=== PATIENT | male | born 1950 | race Two or more races ===

== ENCOUNTER 2017-03-11 08:25 | Outpatient (CLI) | payer OTHER ==
[~2017-03-11 08:25] MED LIST: OMEPRAZOLE10 MG; SYNTHROID75 MCG; VYTORIN 10-201 EACH
== END 2017-03-11 08:32 | disposition home or self-care (01) ==
LOC: LAB 08:25
DX: N40.0 Benign prostatic hyperplasia without lower urinary tract symptoms (principal)

== ENCOUNTER 2017-06-22 08:52 | Outpatient (CLI) | payer OTHER | END 2017-06-22 15:49 | disposition home or self-care (01) | LOC: LAB 08:52 | DX: D50.0 Iron deficiency anemia secondary to blood loss (chronic) (principal); E11.65 Type 2 diabetes mellitus with hyperglycemia; Z12.11 Encounter for screening for malignant neoplasm of colon; K62.5 Hemorrhage of anus and rectum; R10.84 Generalized abdominal pain; E78.2 Mixed hyperlipidemia; N40.0 Benign prostatic hyperplasia without lower urinary tract symptoms; E03.0 Congenital hypothyroidism with diffuse goiter; N39.0 Urinary tract infection, site not specified; E55.9 Vitamin D deficiency, unspecified; M81.0 Age-related osteoporosis without current pathological fracture; E11.29 Type 2 diabetes mellitus with other diabetic kidney complication ==

== ENCOUNTER 2017-11-28 07:11 | Outpatient (CLI) | payer OTHER | END 2017-11-28 07:18 | disposition home or self-care (01) | LOC: LAB 07:11 | DX: D50.0 Iron deficiency anemia secondary to blood loss (chronic) (principal); E11.65 Type 2 diabetes mellitus with hyperglycemia; Z12.11 Encounter for screening for malignant neoplasm of colon; K62.5 Hemorrhage of anus and rectum; R10.84 Generalized abdominal pain; E78.2 Mixed hyperlipidemia; N40.0 Benign prostatic hyperplasia without lower urinary tract symptoms; E03.0 Congenital hypothyroidism with diffuse goiter; N39.0 Urinary tract infection, site not specified; E55.9 Vitamin D deficiency, unspecified; M81.0 Age-related osteoporosis without current pathological fracture; E11.29 Type 2 diabetes mellitus with other diabetic kidney complication ==

== ENCOUNTER 2018-01-18 15:59 | Outpatient (CLI) | payer OTHER | END 2018-01-18 16:10 | disposition home or self-care (01) | LOC: LAB 15:59 | DX: N40.0 Benign prostatic hyperplasia without lower urinary tract symptoms (principal) ==

== ENCOUNTER 2018-06-26 07:14 | Outpatient (CLI) | payer OTHER | END 2018-06-26 07:21 | disposition home or self-care (01) | LOC: LAB 07:14 | DX: D50.0 Iron deficiency anemia secondary to blood loss (chronic) (principal); E11.69 Type 2 diabetes mellitus with other specified complication; E78.00 Pure hypercholesterolemia, unspecified; E03.8 Other specified hypothyroidism; N39.0 Urinary tract infection, site not specified; Z12.11 Encounter for screening for malignant neoplasm of colon; K62.5 Hemorrhage of anus and rectum; R10.9 Unspecified abdominal pain; E55.9 Vitamin D deficiency, unspecified; E51.8 Other manifestations of thiamine deficiency; E11.29 Type 2 diabetes mellitus with other diabetic kidney complication; N40.0 Benign prostatic hyperplasia without lower urinary tract symptoms ==

== ENCOUNTER 2018-07-01 09:31 | Outpatient (CLI) | payer OTHER | END 2018-07-01 09:38 | disposition home or self-care (01) | LOC: LAB 09:31 | DX: D50.0 Iron deficiency anemia secondary to blood loss (chronic) (principal); E11.69 Type 2 diabetes mellitus with other specified complication; E78.00 Pure hypercholesterolemia, unspecified; E03.8 Other specified hypothyroidism; N39.0 Urinary tract infection, site not specified; K62.5 Hemorrhage of anus and rectum; R10.9 Unspecified abdominal pain; Z12.11 Encounter for screening for malignant neoplasm of colon; E55.9 Vitamin D deficiency, unspecified; E51.8 Other manifestations of thiamine deficiency; E11.29 Type 2 diabetes mellitus with other diabetic kidney complication; N40.0 Benign prostatic hyperplasia without lower urinary tract symptoms ==

== ENCOUNTER 2018-10-09 07:04 | Outpatient (CLI) | payer OTHER | END 2018-10-09 07:12 | disposition home or self-care (01) | LOC: LAB 07:04 | DX: E78.49 Other hyperlipidemia (principal); E11.69 Type 2 diabetes mellitus with other specified complication ==

== ENCOUNTER → 2018-11-27 08:20 | Outpatient (CLI) | payer OTHER | END | disposition home or self-care (01) | LOC: LAB 08:20 | DX: N40.0 Benign prostatic hyperplasia without lower urinary tract symptoms (principal); D50.0 Iron deficiency anemia secondary to blood loss (chronic); E11.69 Type 2 diabetes mellitus with other specified complication; E78.00 Pure hypercholesterolemia, unspecified; E03.8 Other specified hypothyroidism; N39.0 Urinary tract infection, site not specified; R10.84 Generalized abdominal pain; E55.9 Vitamin D deficiency, unspecified; E51.8 Other manifestations of thiamine deficiency; E11.29 Type 2 diabetes mellitus with other diabetic kidney complication ==

== ENCOUNTER 2018-11-27 09:21 | Outpatient (CLI) | payer OTHER | END 2018-11-27 09:23 | disposition home or self-care (01) | LOC: SONOGRAMA 09:21 → MAMO-SONO 10:15 | DX: N40.0 Benign prostatic hyperplasia without lower urinary tract symptoms (principal) ==

== ENCOUNTER → 2019-04-13 06:53 | Outpatient (CLI) | payer OTHER | END | disposition home or self-care (01) | LOC: LAB 06:53 | DX: D64.89 Other specified anemias (principal); I10 Essential (primary) hypertension; E78.00 Pure hypercholesterolemia, unspecified; N39.0 Urinary tract infection, site not specified; E03.8 Other specified hypothyroidism; E11.69 Type 2 diabetes mellitus with other specified complication; E11.29 Type 2 diabetes mellitus with other diabetic kidney complication; Z12.31 Encounter for screening mammogram for malignant neoplasm of breast; R19.5 Other fecal abnormalities; E55.9 Vitamin D deficiency, unspecified; N40.0 Benign prostatic hyperplasia without lower urinary tract symptoms ==

== ENCOUNTER → 2019-04-14 13:52 | Outpatient (CLI) | payer OTHER | END | disposition home or self-care (01) | LOC: LAB 13:52 | DX: D52.8 Other folate deficiency anemias (principal) ==

== ENCOUNTER 2019-07-16 07:31 | Outpatient (CLI) | payer OTHER | END 2019-07-16 07:35 | disposition home or self-care (01) | LOC: LAB 07:31 | DX: D64.89 Other specified anemias (principal); I10 Essential (primary) hypertension; E11.9 Type 2 diabetes mellitus without complications; E78.00 Pure hypercholesterolemia, unspecified; N39.0 Urinary tract infection, site not specified; E03.8 Other specified hypothyroidism ==

== ENCOUNTER 2019-09-27 07:32 | Outpatient (CLI) | payer OTHER | END 2019-09-27 07:39 | disposition home or self-care (01) | LOC: LAB 07:32 | PROVIDERS: ATTEND Internal Medicine | DX: E29.1 Testicular hypofunction (principal); E03.8 Other specified hypothyroidism; E11.65 Type 2 diabetes mellitus with hyperglycemia; N39.0 Urinary tract infection, site not specified; D50.0 Iron deficiency anemia secondary to blood loss (chronic) ==

== ENCOUNTER → 2019-12-02 06:12 | Outpatient (CLI) | payer OTHER | END | disposition home or self-care (01) | LOC: LAB 06:12 | PROVIDERS: ATTEND Urology | DX: N32.81 Overactive bladder (principal) ==

== ENCOUNTER → 2019-12-03 07:24 | Outpatient (CLI) | payer OTHER | END | disposition home or self-care (01) | LOC: LAB 07:24 | PROVIDERS: ATTEND Urology | DX: N40.0 Benign prostatic hyperplasia without lower urinary tract symptoms (principal); D50.0 Iron deficiency anemia secondary to blood loss (chronic); E11.69 Type 2 diabetes mellitus with other specified complication; E03.8 Other specified hypothyroidism; N39.0 Urinary tract infection, site not specified; C38.1 Malignant neoplasm of anterior mediastinum; E29.1 Testicular hypofunction ==

== ENCOUNTER 2020-03-22 06:27 | Outpatient (CLI) | payer OTHER | END 2020-03-22 06:35 | disposition home or self-care (01) | LOC: LAB 06:27 | PROVIDERS: ATTEND Internal Medicine | DX: N40.0 Benign prostatic hyperplasia without lower urinary tract symptoms (principal); D64.89 Other specified anemias; I10 Essential (primary) hypertension; E11.9 Type 2 diabetes mellitus without complications; E78.00 Pure hypercholesterolemia, unspecified; E55.9 Vitamin D deficiency, unspecified; N39.0 Urinary tract infection, site not specified; E03.8 Other specified hypothyroidism; R80.8 Other proteinuria; R19.5 Other fecal abnormalities ==

== ENCOUNTER → 2020-07-21 07:03 | Outpatient (CLI) | payer OTHER | END | disposition home or self-care (01) | LOC: LAB 07:03 | PROVIDERS: ATTEND Internal Medicine | DX: E11.9 Type 2 diabetes mellitus without complications (principal); D64.89 Other specified anemias; N39.0 Urinary tract infection, site not specified; E03.8 Other specified hypothyroidism; E78.00 Pure hypercholesterolemia, unspecified; N40.0 Benign prostatic hyperplasia without lower urinary tract symptoms ==

== ENCOUNTER 2020-10-31 06:53 | Outpatient (CLI) | payer OTHER | END 2020-10-31 06:57 | disposition home or self-care (01) | LOC: LAB 06:53 | PROVIDERS: ATTEND Internal Medicine | DX: E03.8 Other specified hypothyroidism (principal); E11.65 Type 2 diabetes mellitus with hyperglycemia; D50.0 Iron deficiency anemia secondary to blood loss (chronic); N39.0 Urinary tract infection, site not specified; E78.00 Pure hypercholesterolemia, unspecified ==

== ENCOUNTER 2021-02-02 07:08 | Outpatient (CLI) | payer OTHER | END 2021-02-02 07:19 | disposition home or self-care (01) | LOC: LAB 07:08 | DX: N40.0 Benign prostatic hyperplasia without lower urinary tract symptoms (principal) ==

== ENCOUNTER 2021-04-03 06:11 | Outpatient (CLI) | payer OTHER | END 2021-04-03 06:12 | disposition home or self-care (01) | LOC: LAB 06:11 | PROVIDERS: ATTEND Internal Medicine | DX: N32.81 Overactive bladder (principal); E29.1 Testicular hypofunction; N40.1 Benign prostatic hyperplasia with lower urinary tract symptoms; E11.69 Type 2 diabetes mellitus with other specified complication; E03.8 Other specified hypothyroidism; D50.0 Iron deficiency anemia secondary to blood loss (chronic); N39.0 Urinary tract infection, site not specified; N40.0 Benign prostatic hyperplasia without lower urinary tract symptoms ==

== ENCOUNTER 2021-07-06 07:45 | Outpatient (CLI) | payer OTHER | END 2021-07-06 07:51 | disposition home or self-care (01) | LOC: LAB 07:45 | PROVIDERS: ATTEND Internal Medicine | DX: D64.9 Anemia, unspecified (principal); E11.9 Type 2 diabetes mellitus without complications; E78.00 Pure hypercholesterolemia, unspecified; N39.0 Urinary tract infection, site not specified; E03.8 Other specified hypothyroidism; Z12.11 Encounter for screening for malignant neoplasm of colon; R19.5 Other fecal abnormalities; E55.9 Vitamin D deficiency, unspecified ==

== ENCOUNTER 2021-07-26 07:46 | Outpatient (CLI) | payer OTHER | END 2021-07-26 08:49 | disposition home or self-care (01) | LOC: MRI 07:46 | PROVIDERS: ATTEND Neuromusculoskeletal Medicine & OMM | DX: R41.3 Other amnesia (principal); D49.6 Neoplasm of unspecified behavior of brain; G40.909 Epilepsy, unspecified, not intractable, without status epilepticus | CPT/HCPCS: 70553; Q9965 ==

== ENCOUNTER 2021-07-26 07:49 | Outpatient (CLI) | payer OTHER | END 2021-07-26 07:53 | disposition home or self-care (01) | LOC: LAB 07:49 | PROVIDERS: ATTEND Urology | DX: E29.1 Testicular hypofunction (principal); A64 Unspecified sexually transmitted disease ==

== ENCOUNTER 2021-10-08 06:10 | Outpatient (CLI) | payer OTHER | END 2021-10-08 06:11 | disposition home or self-care (01) | LOC: LAB 06:10 | PROVIDERS: ATTEND Internal Medicine | DX: D64.9 Anemia, unspecified (principal); E11.9 Type 2 diabetes mellitus without complications; E78.00 Pure hypercholesterolemia, unspecified; N39.0 Urinary tract infection, site not specified; E03.8 Other specified hypothyroidism ==

== ENCOUNTER 2021-11-18 07:03 | Outpatient (CLI) | payer OTHER | END 2021-11-18 07:05 | disposition home or self-care (01) | LOC: LAB 07:03 | PROVIDERS: ATTEND Neuromusculoskeletal Medicine & OMM | DX: R41.89 Other symptoms and signs involving cognitive functions and awareness (principal); R41.3 Other amnesia; G30.1 Alzheimer's disease with late onset; E03.9 Hypothyroidism, unspecified; E78.00 Pure hypercholesterolemia, unspecified; E78.1 Pure hyperglyceridemia ==

== ENCOUNTER 2022-01-25 07:07 | Outpatient (CLI) | payer OTHER | END 2022-01-25 07:08 | disposition home or self-care (01) | LOC: LAB 07:07 | PROVIDERS: ATTEND Urology | DX: N39.0 Urinary tract infection, site not specified (principal); E11.9 Type 2 diabetes mellitus without complications; E78.00 Pure hypercholesterolemia, unspecified; E03.8 Other specified hypothyroidism; D64.9 Anemia, unspecified ==

== ENCOUNTER 2022-03-29 07:09 | Outpatient (CLI) | payer OTHER | END 2022-03-29 07:10 | disposition home or self-care (01) | LOC: LAB 07:09 | PROVIDERS: ATTEND Specialist | DX: N39.0 Urinary tract infection, site not specified (principal); Z12.5 Encounter for screening for malignant neoplasm of prostate; I11.9 Hypertensive heart disease without heart failure ==

== ENCOUNTER 2022-08-28 06:32 | Outpatient (CLI) | payer OTHER | END 2022-08-28 06:33 | disposition home or self-care (01) | LOC: LAB 06:32 | PROVIDERS: ATTEND Internal Medicine | DX: E29.1 Testicular hypofunction (principal); N40.0 Benign prostatic hyperplasia without lower urinary tract symptoms; N39.0 Urinary tract infection, site not specified; D64.9 Anemia, unspecified; E11.9 Type 2 diabetes mellitus without complications; E03.8 Other specified hypothyroidism; R80.8 Other proteinuria; R19.5 Other fecal abnormalities; Z12.11 Encounter for screening for malignant neoplasm of colon; E55.9 Vitamin D deficiency, unspecified ==

== ENCOUNTER 2022-08-28 07:27 | Outpatient (CLI) | payer OTHER | END 2022-08-28 07:39 | disposition home or self-care (01) | LOC: SONOGRAMA 07:27 | PROVIDERS: ATTEND Internal Medicine | DX: E04.1 Nontoxic single thyroid nodule (principal); E03.8 Other specified hypothyroidism ==

== ENCOUNTER 2023-03-14 08:27 | Outpatient (CLI) | payer OTHER ==
[2023-03-14 10:18] LABS: URINE APPEARANCE Clear; URINE BILIRRUBIN Negative (NEGATIVE); URINE BLOOD Negative; URINE COLOR Yellow; URINE GLUCOSE Negative (NEGATIVE); URINE LEUKOCYTE Trace; URINE NITRATE Negative; URINE PROTEIN Negative (NEGATIVE); URINE UROBILINOGEN 0.2 E.U./dl
[2023-03-14 10:22] LABS: URINE BACTERIA 6.2 uL (0.0-1933); URINE WBC 4.4 uL (0.0-23.2)
[2023-03-14 10:26] LABS: URINE RBC 0.1 uL (0.0-20.8)
[2023-03-14 10:52] LABS: HEMATOCRIT 42.1 % (39.0-48.0); HEMOGLOBIN 14.4 g/dL (13-16.00); MEAN CELL VOLUME 89.7 fL (80.0-100.00); MEAN CORPUSCULAR HEMOGLOBIN 30.8 pg (27.00-32.0); MEAN CORPUSCULAR HGB CONC 34.3 g/dl (32.0-36.0); PLATELET COUNT 242 K/uL (150-450); RED BLOOD COUNT 4.69 M/uL (4.00-6.00); RED CELL DISTRIBUTION WIDTH 14.8 % (11.5-14.5)
[2023-03-14 11:03] LABS: ALBUMIN 3.5 gm/dL (3.4-5.0); ALKALINE PHOSPHATASE 57 U/L (50-136); ALT/SGPT 29 U/L (12-78); ANION GAP 7 (10.0-20.0); AST/SGOT 18 U/L (15-37); BILIRUBIN TOTAL 0.49 mg/dL (0.3-1.2); BLOOD UREA NITROGEN 15 mg/dL (7-18); BUN CREA RATIO 23 (7.0-25.0); C-REACTIVE PROTEIN < 0.29 MG/DL (0.00-0.29); CALCIUM 8.8 mg/dL (8.5-10.1); CARBON DIOXIDE 29 mEq/L (21-32); CHLORIDE 107 mmol/L (98-107); CHOL HDL RATIO 3.1 (0-5.0); CHOLESTEROL 171 mg/dL (0-200); CREATININE SERUM 0.66 mg/dL (0.70-1.30); GFR 118.64; GLOBULINA 3.7 G/DL (2.4-3.5); GLUCOSE FASTING 109 mg/dL (65-100); HDL 56 mg/dl (40-60); LDL 101 mg/dl (0-130); OSMOLALITY SERUM 279 MOSM/KG (275-295); PHOSPHOKINASE CREATININE 106 U/L (39-308); POTASSIUM 4.25 mEq/L (3.5-5.1); SODIUM 139 mmol/L (136-145); T4 FREE 0.94 NG/ML (0.76-1.46); TOTAL PROTEIN 7.2 gm/dL (6.4-8.2); TRIGLYCERIDES 72 mg/dL (0-150); TSH 0.828 uIU/mL (0.358-3.74); VLDL 14 (0-39)
[2023-03-14 15:19] LABS: ERYTHROCYTE SEDIMENTATION RATE 12 mm/hr
[2023-03-16 10:45] LABS: VITAMIN D3 25 HYDROXY 43.81 ng/ml (30-120)
== END 2023-03-14 08:40 | disposition home or self-care (01) ==
LOC: LAB 08:27
PROVIDERS: ATTEND Internal Medicine
DX: D64.9 Anemia, unspecified (principal); E11.9 Type 2 diabetes mellitus without complications; E78.00 Pure hypercholesterolemia, unspecified; N39.0 Urinary tract infection, site not specified; E03.8 Other specified hypothyroidism; N18.31 Chronic kidney disease, stage 3a; Z12.11 Encounter for screening for malignant neoplasm of colon; N40.0 Benign prostatic hyperplasia without lower urinary tract symptoms; E55.9 Vitamin D deficiency, unspecified; N32.81 Overactive bladder

== ENCOUNTER 2023-04-01 10:44 | Outpatient (CLI) | payer OTHER | END 2023-04-01 10:57 | disposition home or self-care (01) | LOC: MRI 10:44 | PROVIDERS: ATTEND Neuromusculoskeletal Medicine & OMM | DX: R41.3 Other amnesia (principal) | CPT/HCPCS: 70553; Q9965 ==

== ENCOUNTER 2023-08-29 07:18 | Outpatient (CLI) | payer OTHER ==
[2023-08-29 08:17] LABS: URINE APPEARANCE Clear; URINE BILIRRUBIN Negative (NEGATIVE); URINE BLOOD Negative; URINE COLOR Yellow; URINE GLUCOSE Negative (NEGATIVE); URINE LEUKOCYTE Small; URINE NITRATE Negative; URINE PROTEIN Negative (NEGATIVE); URINE UROBILINOGEN 0.2 E.U./dl
[2023-08-29 08:18] LABS: URINE BACTERIA 20.1 uL (0.0-1933)
[2023-08-29 08:52] LABS: URINE EPITHELIAL CELLS 0.6 uL (0.0-38.8); URINE RBC 0.6 uL (0.0-20.8)
[2023-08-29 08:59] LABS: ALBUMIN 3.5 gm/dL (3.4-5.0); BILIRUBIN TOTAL 0.27 mg/dL (0.3-1.2); CALCIUM 8.4 mg/dL (8.5-10.1); CHOL HDL RATIO 3.2 (0-5.0); CREATININE SERUM 0.73 mg/dL (0.70-1.30); GFR 105.61; GLOBULINA 3.5 G/DL (2.4-3.5); POTASSIUM 4.92 mEq/L (3.5-5.1); PROSTATIC SPECIFIC ANTIGEN 2.76 NG/ML (0.010-4.00); TSH 1.11 uIU/mL (0.358-3.74)
[2023-08-29 09:31] LABS: HEMATOCRIT 41.4 % (39.0-48.0); HEMOGLOBIN 14.3 g/dL (13-16.00); MEAN CORPUSCULAR HEMOGLOBIN 30.9 pg (27.00-32.0); MEAN CORPUSCULAR HGB CONC 34.7 g/dl (32.0-36.0); PLATELET COUNT 242 K/uL (150-450); RED BLOOD COUNT 4.65 M/uL (4.00-6.00); RED CELL DISTRIBUTION WIDTH 14.9 % (11.5-14.5)
== END 2023-08-29 07:19 | disposition home or self-care (01) ==
LOC: LAB 07:18
PROVIDERS: ATTEND Internal Medicine
DX: N32.81 Overactive bladder (principal); D64.9 Anemia, unspecified; E11.9 Type 2 diabetes mellitus without complications; E78.00 Pure hypercholesterolemia, unspecified; N39.0 Urinary tract infection, site not specified; E03.8 Other specified hypothyroidism; N18.31 Chronic kidney disease, stage 3a

== ENCOUNTER 2024-01-09 08:10 | Outpatient (CLI) | payer OTHER ==
[2024-01-09 09:52] LABS: HEMATOCRIT 43.9 % (39.0-48.0); HEMOGLOBIN 15.2 g/dL (13-16.00); MEAN CORPUSCULAR HEMOGLOBIN 30.5 pg (27.00-32.0); MEAN CORPUSCULAR HGB CONC 34.7 g/dl (32.0-36.0); PLATELET COUNT 249 K/uL (150-450); RED BLOOD COUNT 4.99 M/uL (4.00-6.00); RED CELL DISTRIBUTION WIDTH 14.7 % (11.5-14.5)
[2024-01-09 09:53] LABS: PH,URINE 5.5 (5.0-8.0); URINE APPEARANCE Clear; URINE BILIRRUBIN Negative (NEGATIVE); URINE BLOOD Negative; URINE COLOR Yellow; URINE GLUCOSE Negative (NEGATIVE); URINE KETONE Negative (NEGATIVE); URINE LEUKOCYTE Small; URINE NITRATE Negative; URINE PROTEIN Negative (NEGATIVE); URINE UROBILINOGEN 0.2 E.U./dl
[2024-01-09 10:07] LABS: URINE EPITHELIAL CELLS 1.3 uL (0.0-38.8); URINE RBC 1.8 uL (0.0-20.8)
[2024-01-09 11:20] LABS: CALCIUM 9.2 mg/dL (8.5-10.1); CHOL HDL RATIO 3.2 (0-5.0); CREATININE SERUM 0.72 mg/dL (0.70-1.30); GFR 107.01; POTASSIUM 4.74 mEq/L (3.5-5.1); TSH 0.812 uIU/mL (0.358-3.74)
== END 2024-01-09 08:15 | disposition home or self-care (01) ==
LOC: LAB 08:10
PROVIDERS: ATTEND Internal Medicine
DX: D64.9 Anemia, unspecified (principal); E11.9 Type 2 diabetes mellitus without complications; E78.00 Pure hypercholesterolemia, unspecified; N39.0 Urinary tract infection, site not specified; E03.8 Other specified hypothyroidism

== ENCOUNTER 2024-03-14 06:33 | Outpatient (CLI) | payer OTHER ==
[2024-03-14 07:26] LABS: HEMATOCRIT 40.8 % (39.0-48.0); HEMOGLOBIN 14.1 g/dL (13-16.00); MEAN CELL VOLUME 86.6 fL (80.0-100.00); MEAN CORPUSCULAR HGB CONC 34.7 g/dl (32.0-36.0); PLATELET COUNT 243 K/uL (150-450); RED BLOOD COUNT 4.71 M/uL (4.00-6.00); RED CELL DISTRIBUTION WIDTH 14.6 % (11.5-14.5)
[2024-03-14 07:39] LABS: INR 1.01; PARTIAL THROMBOPLASTIN TIME 28.1 SECONDS (22.0-34.0)
[2024-03-14 07:42] LABS: PH,URINE 6.5 (5.0-8.0); URINE APPEARANCE Clear; URINE BILIRRUBIN Negative (NEGATIVE); URINE BLOOD Negative; URINE COLOR Yellow; URINE GLUCOSE Negative (NEGATIVE); URINE KETONE Negative (NEGATIVE); URINE LEUKOCYTE Small; URINE NITRATE Negative; URINE PROTEIN Negative (NEGATIVE); URINE UROBILINOGEN 0.2 E.U./dl
[2024-03-14 07:46] LABS: URINE CAST 0.14 uL (0.0-1.40); URINE EPITHELIAL CELLS 0.9 uL (0.0-38.8); URINE RBC 2.5 uL (0.0-20.8); URINE WBC 15.9 uL (0.0-23.2)
[2024-03-14 08:29] LABS: ALBUMIN 3.3 gm/dL (3.4-5.0); BILIRUBIN TOTAL 0.42 mg/dL (0.3-1.2); CALCIUM 8.8 mg/dL (8.5-10.1); CHOL HDL RATIO 2.9 (0-5.0); CREATININE SERUM 0.73 mg/dL (0.70-1.30); GFR 105.32; GLOBULINA 3.6 G/DL (2.4-3.5); POTASSIUM 4.23 mEq/L (3.5-5.1); PROSTATIC SPECIFIC ANTIGEN 2.96 NG/ML (0.010-4.00); TOTAL PROTEIN 6.9 gm/dL (6.4-8.2); TSH 1.45 uIU/mL (0.358-3.74)
[2024-03-15 06:04] LABS: % FREE PSA 14.4 % (.); PROLACTIN 8.6 ng/mL (3.6-25.2); free psa 0.36 ng/mL; total psa 2.5 ng/mL (0.0-4.0)
== END 2024-03-14 06:39 | disposition home or self-care (01) ==
LOC: LAB 06:33
PROVIDERS: ATTEND Internal Medicine
DX: D64.9 Anemia, unspecified (principal); E11.9 Type 2 diabetes mellitus without complications; E78.00 Pure hypercholesterolemia, unspecified; N39.0 Urinary tract infection, site not specified; E03.8 Other specified hypothyroidism; N18.31 Chronic kidney disease, stage 3a; Z12.11 Encounter for screening for malignant neoplasm of colon; E55.9 Vitamin D deficiency, unspecified; N40.0 Benign prostatic hyperplasia without lower urinary tract symptoms; N40.1 Benign prostatic hyperplasia with lower urinary tract symptoms; R35.0 Frequency of micturition; N52.9 Male erectile dysfunction, unspecified; R97.20 Elevated prostate specific antigen [PSA]; R31.0 Gross hematuria

== ENCOUNTER 2024-06-06 07:12 | Outpatient (CLI) | payer OTHER ==
[2024-06-06 08:29] LABS: HEMATOCRIT 41.7 % (39.0-48.0); HEMOGLOBIN 14.1 g/dL (13-16.00); MEAN CELL VOLUME 88.4 fL (80.0-100.00); MEAN CORPUSCULAR HEMOGLOBIN 29.8 pg (27.00-32.0); MEAN CORPUSCULAR HGB CONC 33.7 g/dl (32.0-36.0); PLATELET COUNT 242 K/uL (150-450); RED BLOOD COUNT 4.72 M/uL (4.00-6.00); RED CELL DISTRIBUTION WIDTH 14.9 % (11.5-14.5); URINE APPEARANCE Clear; URINE BACTERIA 24.4 uL (0.0-1933); URINE BILIRRUBIN Negative (NEGATIVE); URINE BLOOD Negative; URINE COLOR Yellow; URINE EPITHELIAL CELLS 1.7 uL (0.0-38.8); URINE GLUCOSE Negative (NEGATIVE); URINE KETONE Negative (NEGATIVE); URINE LEUKOCYTE Small; URINE NITRATE Negative; URINE PROTEIN Negative (NEGATIVE); URINE UROBILINOGEN 0.2 E.U./dl; URINE WBC 18.9 uL (0.0-23.2)
[2024-06-06] MEDS ORDERED: BUSPIRONE HCL7.5 MG (08:44)
[2024-06-06] MEDS ORDERED: EZETIMIBE10 MG (08:44)
[2024-06-06] MEDS ORDERED: SIMVASTATIN5 MG (08:44)
[2024-06-06] MEDS ORDERED: MYRBETRIQ50 MG (08:45)
[2024-06-06 09:02] LABS: PARTIAL THROMBOPLASTIN TIME 28.3 SECONDS (22.0-34.0); PROTHROMBIN TIME 10.9 SECONDS (9.0-11.5)
[2024-06-06 09:13] LABS: URINE CAST 0.14 uL (0.0-1.40); URINE RBC 0.4 uL (0.0-20.8)
[2024-06-06 09:29] LABS: CALCIUM 8.6 mg/dL (8.5-10.1); CREATININE SERUM 0.76 mg/dL (0.70-1.30); GFR 100.53; POTASSIUM 4.36 mEq/L (3.5-5.1); PROSTATIC SPECIFIC ANTIGEN 2.7 NG/ML (0.010-4.00)
[2024-06-06] MEDS ORDERED: IBU800 MG PO (11:14)
[2024-06-08 01:05] LABS: % FREE PSA 17.7 % (.); free psa 0.46 ng/mL; total psa 2.6 ng/mL (0.0-4.0)
== END 2024-06-06 07:32 | disposition home or self-care (01) ==
LOC: LAB 07:12
DX: R33.8 Other retention of urine (principal); R39.15 Urgency of urination; R39.13 Splitting of urinary stream; R33.9 Retention of urine, unspecified; R10.30 Lower abdominal pain, unspecified; N40.1 Benign prostatic hyperplasia with lower urinary tract symptoms; I86.1 Scrotal varices; R35.0 Frequency of micturition; Z01.811 Encounter for preprocedural respiratory examination; I11.9 Hypertensive heart disease without heart failure

== ENCOUNTER 2024-06-06 08:24 | Emergency (ER) | payer OTHER ==
[~2024-06-06] VITALS: Ht 177.8 cm; Wt 79.4 kg
[2024-06-06 08:40] VITALS: BP 142/83; O2SAT 97
[2024-06-06] MEDS ORDERED: SIMVASTATIN5 MG (08:44)
[2024-06-06] MEDS ORDERED: BUSPIRONE HCL7.5 MG (08:44)
[2024-06-06] MEDS ORDERED: EZETIMIBE10 MG (08:44)
[2024-06-06] MEDS ORDERED: MYRBETRIQ50 MG (08:45)
[2024-06-06] MEDS ORDERED: KETOROLAC TROMETHAMINE 60 MG VIAL IM ONE ×2 (09:45→09:46)
[2024-06-06] MEDS ORDERED: CEFTRIAXONE SODIUM 1,000 MG VIAL ONE (11:11)
[2024-06-06] MEDS ORDERED: IBU800 MG PO (11:14)
[2024-06-06] MEDS ORDERED: CEFTRIAXONE SODIUM 1,000 MG VIAL IM ONE (11:15)
== END 2024-06-06 13:35 | disposition home or self-care (01) ==
LOC: ER 08:25
DX: M79.671 Pain in right foot (principal); M19.90 Unspecified osteoarthritis, unspecified site; E03.9 Hypothyroidism, unspecified; N40.0 Benign prostatic hyperplasia without lower urinary tract symptoms
CPT/HCPCS: 73630; 96372; 99283; J0696; J1885

== ENCOUNTER 2024-06-13 15:11 | Outpatient (CLI) | payer OTHER ==
[~2024-06-13 15:11] MED LIST changes: +BUSPIRONE HCL7.5 MG; +EZETIMIBE10 MG; +IBU800 MG PO; +MYRBETRIQ50 MG; +SIMVASTATIN5 MG
== END 2024-06-13 23:00 | disposition home or self-care (01) ==
LOC: LAB 15:11
PROVIDERS: ATTEND Internal Medicine
DX: M10.071 Idiopathic gout, right ankle and foot (principal)

== ENCOUNTER 2024-08-12 06:49 | Outpatient (CLI) | payer OTHER ==
[2024-08-12 07:45] LABS: PARTIAL THROMBOPLASTIN TIME 25.9 SECONDS (22.0-34.0); PROTHROMBIN TIME 10.9 SECONDS (9.0-11.5)
[2024-08-12 07:47] LABS: PH,URINE 6.5 (5.0-8.0); URINE APPEARANCE Clear; URINE BACTERIA 649.8 uL (0.0-1933); URINE BILIRRUBIN Negative (NEGATIVE); URINE BLOOD Negative; URINE COLOR Yellow; URINE EPITHELIAL CELLS 2.2 uL (0.0-38.8); URINE GLUCOSE Negative (NEGATIVE); URINE KETONE Negative (NEGATIVE); URINE LEUKOCYTE Moderate; URINE NITRATE Negative; URINE PROTEIN Negative (NEGATIVE); URINE UROBILINOGEN 0.2 E.U./dl; URINE WBC 130.5 uL (0.0-23.2)
[2024-08-12 07:49] LABS: BASO % 0.9 % (0.1-1.2); EOS # 0.06 (0.04-0.54); EOS % 1.3 % (0.7-7.0); HEMOGLOBIN 13.4 g/dL (13.7-17.5); LYMPH # 1.72 (1.18-3.74); LYMPH % 37.7 % (19.3-53.1); MEAN CORPUSCULAR HEMOGLOBIN 28.8 pg (25.6-32.2); MONO # 0.42 (0.24-0.82); MONO % 9.2 % (4.7-12.5); NEUT % 50.5 % (34.0-71.1); PLATELET COUNT 302 K/uL (163-369); RED BLOOD COUNT 4.66 M/uL (4.63-6.08); RED CELL DISTRIBUTION WIDTH 14.2 % (11.6-14.4)
[2024-08-12 07:53] LABS: URINE RBC 1.3 uL (0.0-20.8)
[2024-08-12 08:23] LABS: CALCIUM 8.7 mg/dL (8.5-10.1); CHOL HDL RATIO 3.1 (0-5.0); CREATININE SERUM 0.71 mg/dL (0.70-1.30); GFR 108.75; POTASSIUM 4.46 mEq/L (3.5-5.1); TSH 1.1 uIU/mL (0.358-3.74)
== END 2024-08-12 06:50 | disposition home or self-care (01) ==
LOC: EKG 06:49 → LAB 06:49
PROVIDERS: ATTEND Internal Medicine
DX: D64.9 Anemia, unspecified (principal); E11.9 Type 2 diabetes mellitus without complications; E78.2 Mixed hyperlipidemia; N39.0 Urinary tract infection, site not specified; E11.65 Type 2 diabetes mellitus with hyperglycemia; N40.1 Benign prostatic hyperplasia with lower urinary tract symptoms; R33.8 Other retention of urine; R39.13 Splitting of urinary stream; R33.9 Retention of urine, unspecified; R10.30 Lower abdominal pain, unspecified; N39.41 Urge incontinence; R35.0 Frequency of micturition; N52.9 Male erectile dysfunction, unspecified; I86.1 Scrotal varices; I11.9 Hypertensive heart disease without heart failure

== ENCOUNTER 2024-08-27 07:26 | Outpatient (CLI) | payer OTHER ==
[2024-08-27 08:54] LABS: URINE APPEARANCE Clear; URINE BILIRRUBIN Negative (NEGATIVE); URINE BLOOD Negative; URINE COLOR Yellow; URINE GLUCOSE Negative (NEGATIVE); URINE KETONE Negative (NEGATIVE); URINE LEUKOCYTE Small; URINE NITRATE Negative; URINE PROTEIN Trace (NEGATIVE); URINE UROBILINOGEN 0.2 E.U./dl
[2024-08-27 08:59] LABS: URINE BACTERIA 43.1 uL (0.0-1933); URINE EPITHELIAL CELLS 2.1 uL (0.0-38.8); URINE WBC 25.9 uL (0.0-23.2)
[2024-08-27 09:07] LABS: URINE CAST 0.14 uL (0.0-1.40); URINE RBC 0.8 uL (0.0-20.8)
== END 2024-08-27 07:33 | disposition home or self-care (01) ==
LOC: LAB 07:26
PROVIDERS: ATTEND Internal Medicine
DX: N39.0 Urinary tract infection, site not specified (principal)

== ENCOUNTER 2024-12-13 06:11 | Outpatient (CLI) | payer OTHER ==
[2024-12-13 07:34] LABS: BASO % 0.9 % (0.1-1.2); EOS # 0.18 (0.04-0.54); EOS % 3.1 % (0.7-7.0); LYMPH # 2.28 (1.18-3.74); LYMPH % 38.8 % (19.3-53.1); MEAN PLATELET VOLUME 11.50 fl (9.4-12.4); MONO # 0.50 (0.24-0.82); MONO % 8.5 % (4.7-12.5); NEUT # 2.81 (1.56-6.13); NEUT % 47.8 % (34.0-71.1); RED CELL DISTRIBUTION WIDTH 14.6 % (11.6-14.4)
[2024-12-13 07:45] LABS: URINE APPEARANCE Clear; URINE BILIRRUBIN Negative (NEGATIVE); URINE BLOOD Trace; URINE COLOR Yellow; URINE GLUCOSE Negative (NEGATIVE); URINE KETONE Negative (NEGATIVE); URINE LEUKOCYTE Trace; URINE NITRATE Negative; URINE PROTEIN Negative (NEGATIVE); URINE UROBILINOGEN 0.2 E.U./dl
[2024-12-13 07:51] LABS: URINE RBC 21.4 uL (0.0-20.8); URINE WBC 7.6 uL (0.0-23.2)
[2024-12-13 07:55] LABS: URINE BACTERIA 3.5 uL (0.0-1933); URINE CAST 0.00 uL (0.0-1.40); URINE EPITHELIAL CELLS 1.0 uL (0.0-38.8)
[2024-12-13 07:56] LABS: BUN CREA RATIO 20.0 (7.0-25.0); CHOL HDL RATIO 3.8 (0-5.0); CREATININE SERUM 0.74 mg/dL (0.70-1.30); GFR 103.39; GLUCOSE FASTING 114.0 mg/dL (65-100); HDL 53.0 mg/dl (40-60); LDL 126.0 mg/dl (0-130); OSMOLALITY SERUM 283.0 MOSM/KG (275-295); VLDL 20.0 (0-39)
== END 2024-12-13 06:14 | disposition home or self-care (01) ==
LOC: LAB 06:11
PROVIDERS: ATTEND Internal Medicine
DX: D64.9 Anemia, unspecified (principal); E11.9 Type 2 diabetes mellitus without complications; E78.2 Mixed hyperlipidemia; N39.0 Urinary tract infection, site not specified